=== PATIENT | male | born 1970 | race Caucasian/White ===

== ENCOUNTER 2021-04-26 12:16 | Emergency (ER) | payer OTHER, SELFPAY ==
[2021-04-26] VITALS (26 sets, daily range): BP systolic 129–183; BP diastolic 75–93; PULSE 63–81; RESP 12–22; TEMP 36.6; O2SAT 95–100
--- NOTE | ~2021-04-26 | XR_ITS ---
EXAMINATION: XR chest 2V DATE: 04/26/2021 12:38 INDICATION: Chest pressure TECHNIQUE: PA and lateral views of the chest are obtained. COMPARISON: None available FINDINGS: The lungs are free of acute opacities. There is no pleural effusion or pneumothorax. The ca rdiomediastinal silhouette is normal. There is mild thoracic spondylosis. IMPRESSION: 1. No acute cardiopulmonary abnormality. Reviewed, dictated and finalized at location B.
--- NOTE | 2021-04-26 12:19 | ECG_ITS ---
Measurements Intervals [place] Rate: 70 P: 1 CA: 216 QRS: 19 QRSD: 126 T: -1 QT: 396 QTc: 428 Interpretive Statements SINUS RHYTHM WITH FIRST DEGREE AV BLOCK INTRAVENTRICULAR CONDUCTION DELAY CANNOT RULE OUT SEPTAL INFARCT, AGE INDETERMINATE BORDERLINE ST-T WAVE ABNORMALITY- INFERIOR LEADS ABNORMAL ECG Electronically Signed On 04-26-2021 13:08:44 CDT by Carlitos Nichole D.O.
[2021-04-26 12:43] LABS: Basophils Absolute Auto 0.1 K/mm3 (0.0-0.1); Eosinophils Absolute Auto 0.2 K/mm3 (0-0.3); Eosinophils Percent Auto 2.1 % (0-4.4); Hematocrit 48.4 % (42.0-52.0); Hemoglobin 16.1 g/dL (14.0-18.0); Immature Granulocyte Absolute 0.02 K/mm3 (0.00-0.031); Immature Granulocyte Percent A 0.3 % (0-0.5); Lymphocytes Absolute Auto 1.86 K/mm3 (0.9-3.2); Lymphocytes Percent Auto 25.6 % (18.3-44.2); Mean Corpuscular HGB Conc 33.3 g/dl (32-36); Mean Corpuscular Hemoglobin 28.9 pg (26-34); Mean Corpuscular Volume 86.9 fl (80-100); Monocytes Absolute Auto 0.7 K/mm3 (0.1-0.6); Monocytes Percent Auto 9.1 % (2.6-8.5); Neutrophils Absolute Auto 4.5 K/mm3 (1.3-6.7); Neutrophils Percent Auto 61.9 % (45.5-73.1); Platelet Count Result 211 k/mm3 (150-375); Red Blood Count 5.57 M/mm3 (4.6-6.20); White Blood Count 7.3 K/mm3 (4.5-10.0)
[2021-04-26 12:54] LABS: Alanine Aminotransferase 22 U/L (4-50); Albumin Level 4.6 g/dL (3.5-5.1); Alkaline Phosphatase 108 U/L (38-126); Anion Gap 9 mmol/L (8-16); Aspartate Amino Transferase 25 U/L (17-59); Bilirubin,Total 0.5 mg/dL (0.2-1.3); Blood Urea Nitrogen 14 mg/dL (9-20); Calcium 9.2 mg/dL (8.4-10.2); Carbon Dioxide 25 mmol/L (22-30); Chloride 110 mmol/L (98-107); Estimated CRCL calculation 136 ml/min; Estimated Glomerular Filt Rate > 60; Glucose 100 mg/dL (75-110); Sodium 144 mmol/L (137-145)
[2021-04-26 13:05] LABS: Troponin I < 0.012 ng/mL (0.000-0.034)
--- NOTE | 2021-04-26 13:16 | ED.CHESTPAIN ---
HPI - Chest Pain General Chief Complaint: Weakness Stated Complaint: high blood pressure Time Seen by Provider: 04/26/21 13:01 Source: patient Mode of arrival: ambulatory Limitations: no limitations History of Present Illness HPI narrative: Patient is a 51-year-old male complaining of chest discomfort, 3 out of 10, nonradiating accompanied by elevated blood pressure while at work prior to arrival. Patient states that his blood pressure was in the 170s over 100s, at that time he was having some chest discomfort and now resolved. Patient denies any history of hypertension. Patient denies any shortness of breath, abdominal pain, nausea, vomiting, diaphoresis, fever or chills. Related Data Home Medications Medication Instructions Recorded Confirmed cetirizine 10 mg tablet 10 mg PO DAILY 03/15/20 03/15/20 Allergies Allergy/AdvReac Type Severity Reaction Status Date / Time Sulfa (Sulfonamide Allergy Unknown Verified 03/15/20 16:25 Antibiotics) Review of Systems Review of Systems: All systems reviewed & are unremarkable except as noted in HPI and below Constitutional: Constitutional: Denies body ache(s), Denies chills, Denies excessive sweating, Denies fatigue, Denies fever(s), Denies headache(s), Denies lethargy, Denies malaise, Denies weakness and Denies weight loss Eyes: Eyes: Denies blurry vision, Denies change in vision and Denies loss of vision ENT: Denies dizziness, Denies ear discharge, Denies headache(s), Denies lip swelling, Denies epistaxis, Denies nasal congestion, Denies neck pain, Denies throat swelling and Denies tongue swelling Cardiovascular: Cardiovascular: Denies diaphoresis, Denies rapid heart rate, Denies edema, Denies irregular heart rhythm, Denies lightheadedness, Denies palpitations, Denies dyspnea and Denies dyspnea on exertion Respiratory: Respiratory: Denies chest congestion, Denies cough, Denies hemoptysis, Denies dyspnea and Denies dyspnea on exertion Gastrointestinal: Gastrointestinal: Denies abdominal pain, Denies melena, Denies hematochezia, Denies diarrhea, Denies nausea, Denies vomiting and Denies hematemesis Musculoskeletal: Musculoskeletal: Denies abnormal gait, Denies deformity, Denies joint swelling, Denies limited range of motion, Denies neck pain and Denies numbness Neurologic: Denies Abnormal speech present, Denies abnormal gait, Denies confusion, Denies dizziness, Denies headache(s), Denies focal weakness, Denies loss of vision, Denies numbness, Denies Other visual disturbances, Denies Sensory deficit (Neuro) and Denies weakness Psychiatric: Psychiatric: Denies confusion, Denies depression, Denies auditory hallucinations, Denies homicidal ideation and Denies suicidal ideation Endocrine: Endocrine: Denies cold intolerance, Denies excessive sweating, Denies fatigue, Denies heat intolerance and Denies palpitations Hematologic/Lymphatic: Hematologic/Lymphatic: Denies easy bleeding and Denies easy bruising Allergic/Immunologic: Allergic/Immunologic: Denies lip swelling, Denies throat swelling and Denies tongue swelling PMFSH Past Medical History Medical History (Updated 04/26/21 @ 18:03 by Toni Naylor MD) Seasonal allergies Family History Family History Mother Hypertension Father Diabetes mellitus Hypertension Cerebrovascular accident Atrial fibrillation Social History Social History Smoking status: Never smoker Alcohol intake: current Drinks per week: 1 Substance use: never Gender identity (if verbalized by the patient): Male Comments Past medical history: Hypertension Social history: Non-smoker no EtOH or drug use Family history: Positive for coronary artery disease, [place], hypertension, diabetes, CVA Exam Const: General: cooperative, healthy appearing, comfortable, no acute distress, well developed, alert and awake; No confusion Orie
[2021-04-26] MEDS: ASPIRIN 81 MG CHEWABLE TABLET 324 MG PO (13:49)
[2021-04-26 14:15] LABS: Add Urine Microscopic? YES; Appearance Urine Clear (Clear); Bilirubin Urine Negative (Negative); Blood Urine 1+ (Negative); Color Urine Yellow (Yellow); Glucose Urine UA Negative (Negative); Ketones Urine Negative (Negative); Leukocyte Esterase Ur Negative LEU/UL (Negative); Mucus Urine Rare /lpf; Nitrate Urine Negative (Negative); Protein Urine 1+ mg/dL (Negative); RBC Urine 0-2 /hpf (0-2); Specific Grav Ur 1.027 (1.001-1.035); Squamous Epithelial Cell Urine Rare /hpf (Few); Urobilinogen Urine Negative mg/dL (<2.0); WBC Urine 0-3 /hpf
[2021-04-26 17:30] LABS: Troponin I < 0.012 ng/mL (0.000-0.034)
== END 2021-04-26 18:15 | disposition home or self-care (01) ==
PROVIDERS: Emergency Medicine; Emergency Provider Emergency Medicine; PCP Internal Medicine
DX: R07.89 Other chest pain (principal); I44.0 Atrioventricular block, first degree; I45.9 Conduction disorder, unspecified; R94.31 Abnormal electrocardiogram [ECG] [EKG]
CPT/HCPCS: 36415; 71046; 80053; 81001; 84484; 85025; 93005; 99284; A9270

== ENCOUNTER 2022-05-04 13:10 | Emergency (ER) | payer OTHER, SELFPAY ==
[2022-05-04 13:21] VITALS: BP 127/80; PULSE 97; RESP 24; TEMP 37.1; O2SAT 98
--- NOTE | 2022-05-04 14:31 | ED.GENADULT ---
HPI - General Adult General Chief complaint: Extremity Problem,Nontraumatic Stated complaint: Pain in Righ Calf,Shortness of Breath Time Seen by Provider: 05/04/22 14:12 Source: patient Mode of arrival: ambulatory Limitations: no limitations History of Present Illness HPI narrative: Patient presents today complaining of right calf pain and shortness of breath with exertion and fatigue. Patient reported a flight home from [facility] 2 days ago. He states that prior to this he had a 2-hour car ride to the airport in which he developed some right calf pain. After the long flight back to [place], as he was walking to immigration in the airport, patient noted that his heart rate was very fast and he had developed some shortness of breath with exertion and fatigue. The symptoms have persisted since he arrived in the [place] yesterday at 9 AM. He rates his Pain 3-10/10, which increases with movement or touching the area. Denies any history of DVT or PE in the past. Denies any current chest pain. Denies numbness or tingling in the affected leg. Related Data Home Medications Medication Instructions Recorded Confirmed cetirizine 10 mg tablet (Zyrtec) 10 mg PO DAILY 03/15/20 05/04/22 Allergies Allergy/AdvReac Type Severity Reaction Status Date / Time Sulfa (Sulfonamide Allergy Unknown Verified 05/04/22 13:27 Antibiotics) Review of Systems Review of Systems: CONSTITUTIONAL: Denies body aches, fever, chills, or sweats. EYES: Denies visual changes, redness, or discharge. ENT: Denies rhinorrhea, congestion, sore throat, or otalgia. CARDIOVASCULAR: Denies chest pain, palpitations, or edema. RESPIRATORY: Denies cough. + Shortness of breath with exertion GASTROINTESTINAL: Denies abdominal pain, nausea, vomiting, or diarrhea. GENITOURINARY: Denies dysuria or hematuria. SKIN: Denies rash, itching, or wounds. MUSCULOSKELETAL: Denies back pain. + Right calf pain NEUROLOGIC: Denies headache, numbness, tingling, or weakness. PSYCH: Denies depression or anxiety. [facility] Past Medical History Medical History (Updated 05/04/22 @ 14:31 by Dahiana Joseph, WOOD TYPE FINISHER, [place]) Seasonal allergies Family History Family History Mother Hypertension Father Diabetes mellitus Hypertension Cerebrovascular accident Atrial fibrillation Social History Social History Smoking status: Never smoker Alcohol intake: current Drinks per week: 1 Alcohol use details: beer or wine Substance use: never Gender identity (if verbalized by the patient): Male Exam Narrative: GENERAL: Well-appearing, well-nourished, and in no acute distress. HEAD: Normocephalic, atraumatic. EYES: EOMI. No redness or drainage. Conjunctivae normal. ENT: Mucous membranes pink and moist. NECK: Normal AROM. CHEST: No respiratory distress. Clear to auscultation. HEART: Regular rate and rhythm. No murmur appreciated. Normal peripheral pulses. EXTREMITIES: 2-3+ pitting edema in the bilateral lower extremities that extends to the knees. Right lower leg: No erythema. Distal sensation intact. Capillary refill normal. Color normal. Patient has significant tenderness to the calf area that extends laterally. Full AROM with increase pain in the calf. SKIN: Warm, dry, no rash. Capillary refill normal. Normal skin turgor. NEURO: No focal deficits. Alert and oriented x3. Gait steady. PSYCH: Normal affect. No signs of depression or anxiety. Course Course Level of Care: Express Care Visit Vital Signs Vital signs: Vital Signs Temperature 98.8 F 05/04/22 13:21 Pulse Rate 97 05/04/22 13:21 Respiratory Rate 24 H 05/04/22 13:21 Blood Pressure 127/80 05/04/22 13:21 Pulse Oximetry 98 05/04/22 13:21 Oxygen Delivery Room Air 05/04/22 13:21 Temperature 98.8 F 05/04/22 13:21 Pulse Rate 97 05/04/22 13:21 Respiratory Rate 24 H 05/04/22 13:21
== END 2022-05-04 14:30 | disposition short-term general hospital (02) ==
PROVIDERS: Emergency Provider Nurse Practitioner; PCP Family Medicine
DX: M79.661 Pain in right lower leg (principal); R06.09 Other forms of dyspnea
CPT/HCPCS: 99212; G0463

== ENCOUNTER 2022-05-04 14:43 | Observation (INO) | payer OTHER, SELFPAY ==
[2022-05-04] VITALS (24 sets, daily range): BP systolic 131–163; BP diastolic 76–133; PULSE 78–96; RESP 12–22; TEMP 36.1–36.8; O2SAT 93–98; BMI 47.9
--- NOTE | ~2022-05-04 | CT_ITS ---
EXAMINATION: CTA chest PE protocol DATE: 05/04/2022 19:51 CDT INDICATION: Elevated d-dimer. Shortness of breath TECHNIQUE: Computed tomographic angiography (CTA) of the chest was performed with 100 mL Omnipaque-35 0 intravenous contrast. The dose-length product was 1160.24 mGy-cm. Maximum intensity projection 3D-r econstructions of the aorta and other arteries were constructed by the technologist on a separate wor kstation. COMPARISON: Chest dated 05/04/2022. FINDINGS: Study is technically adequate. There is pulmonary embolism involving segmental and subsegme ntal pulmonary arteries of the upper and lower lobe pulmonary arteries, moderate thrombus burden. Bor derline heart size. No significant pleural or pericardial effusion. The upper abdomen is unremarkable . No thoracic lymphadenopathy. No endobronchial lesions. No focal airspace consolidation. IMPRESSION: 1. Bilateral pulmonary embolism, moderate thrombus burden. Dr. Erick Stokes discussed with Dr. Alberto Armstrong MD at 05/04/2022 19:53 CDT. Reviewed, dictated and finalized at location A.
--- NOTE | ~2022-05-04 | XR_ITS ---
EXAMINATION: XR chest 1V portable 05/04/2022 17:36 INDICATION: Shortness of breath PROCEDURE: AP portable chest COMPARISON: 04/26/2021 FINDINGS: The lungs are clear. Mild cardiomegaly. There are no pleural effusions. There is no pneumo thorax suspected. IMPRESSION: 1: NO ACUTE CARDIOPULMONARY DISEASE. Reviewed, dictated and finalized at location A.
--- NOTE | ~2022-05-04 | US_ITS ---
EXAMINATION:US venous doppler LE RT INDICATION:Right calf pain. TECHNIQUE: Multiple grayscale, color flow and Doppler images of the right lower extremity deep venous systems were obtained and reviewed. COMPARISON:No prior studies for comparison. FINDINGS: The common femoral, superficial femoral and popliteal veins demonstrate normal respiratory variation, augmentation and compressibility. Color flow is also seen within the posterior tibial, pe roneal, greater saphenous and profunda veins. IMPRESSION: 1: No lower extremity deep venous thrombosis. Reviewed, dictated and finalized at location A.
--- NOTE | 2022-05-04 15:27 | PC.NURSE ---
Pt to [place] via w/c
--- NOTE | 2022-05-04 15:39 | ED.LOWEXIN ---
HPI - Extremity Injury (Lower) General Chief Complaint: Extremity Injury, Lower Stated Complaint: sob, pain in calf Time Seen by Provider: 05/04/22 15:35 History of Present Illness HPI Narrative: Patient is 52 years old white male came to the emergency room complaining of shortness of breath on exertion, pain at the back of the right lower leg, and chest pain started yesterday at 9 AM while coming out of the airplane and standing in the immigration line. The above symptoms lasted about 15 minutes. Patient noticed shortness of breath today on any light activity which is new, he reports that he never had similar symptoms in the past. Patient reports a lot of stress lately. History of hypertension, strong family history of coronary artery disease, patient does not smoke or drink or uses drugs. He denies any fever, chills, nausea, vomiting, back pain, abdominal pain. Currently patient denies any chest pain or shortness of breath as long as laying down in bed. Related Data Allergies Allergy/AdvReac Type Severity Reaction Status Date / Time Sulfa (Sulfonamide Allergy Unknown Verified 05/04/22 14:48 Antibiotics) Review of Systems Review of Systems: CONSTITUTIONAL: Denies fever, chills, or sweats. EYES: Denies visual changes, redness, or discharge. ENT: Denies rhinorrhea, congestion, sore throat, or otalgia. CARDIOVASCULAR: Denies chest pain, palpitations, or edema. RESPIRATORY: Denies cough or dyspnea. GASTROINTESTINAL: Denies abdominal pain, nausea, vomiting, or diarrhea. GENITOURINARY: Denies dysuria or hematuria. SKIN: Denies rash or itching. MUSCULOSKELETAL: Denies back pain, joint pain, or myalgia. NEUROLOGIC: Denies headache, numbness, or weakness. PSYCHIATRIC: Denies anxiety or depression. All systems reviewed & are unremarkable except as noted in HPI and below PMFSH Past Medical History Medical History (Updated 05/04/22 @ 20:38 by Alberto Armstrong MD) Seasonal allergies Family History Family History Mother Hypertension Father Diabetes mellitus Hypertension Cerebrovascular accident Atrial fibrillation Social History Social History Smoking status: Never smoker Alcohol intake: current Drinks per week: 1 Alcohol use details: beer or wine Substance use: never Gender identity (if verbalized by the patient): Male Exam Narrative: General appearance: Well-developed, well-nourished Skin: Normal color Head: Normocephalic, nontraumatic Eyes: Clear conjunctiva ENT: Oropharynx normal, ears normal, nose normal Neck: Supple, nontender Chest and respiratory: Airway patent, no respiratory distress, no accessory muscle use Heart: Regular rate/rhythm Abdomen: Soft, nontender, no organomegaly, quiet bowel sounds Vascular: Normal peripheral pulses, normal capillary refill. Musculoskeletal: Diffuse tenderness right calf muscle, no bruises, no swelling, no rash Neurologic: Alert and oriented ?3, [employer] COMPLIANCE COORDINATOR is normal as tested, no gross motor deficit Course Consultations Consultation #1: Accepted patient admission to chest pain center Vital Signs Vital signs: Vital Signs Temperature 36.6 C 05/04/22 14:45 Pulse Rate 96 05/04/22 14:45 Respiratory Rate 16 05/04/22 14:45 Blood Pressure 163/93 H 05/04/22 14:45 Pulse Oximetry 96 05/04/22 14:45 Oxygen Delivery Room Air 05/04/22 14:45 Temperature 36.6 C 05/04/22 14:45 Pulse Rate 86 05/04/22 19:01 Respiratory Rate 12 05/04/22 19:01 Blood Pressure 138/83 05/04/22 19:01 Pulse Oximetry 94 05/04/22 19:01 Oxygen Delivery Room Air 05/04/22
--- NOTE | 2022-05-04 16:59 | ECG_ITS ---
Measurements Intervals [place] Rate: 83 P: 3 AL: 191 QRS: 44 QRSD: 118 T: 14 QT: 392 QTc: 462 Interpretive Statements SINUS RHYTHM INTRAVENTRICULAR CONDUCTION DELAY BORDERLINE ECG Electronically Signed On 05-04-2022 21:24:02 CDT by Carlitos Nichole D.O.
[2022-05-04 17:22] LABS: Basophils Absolute Auto 0.1 K/mm3 (0.0-0.1); Basophils Percent Auto 0.8 % (0.2-1.2); Eosinophils Absolute Auto 0.2 K/mm3 (0-0.3); Eosinophils Percent Auto 2.7 % (0-4.4); Hematocrit 44.6 % (42.0-52.0); Immature Granulocyte Absolute 0.03 K/mm3 (0.00-0.031); Immature Granulocyte Percent A 0.4 % (0-0.5); Lymphocytes Absolute Auto 1.81 K/mm3 (0.9-3.2); Lymphocytes Percent Auto 21.4 % (18.3-44.2); Mean Corpuscular HGB Conc 33.6 g/dl (32-36); Mean Corpuscular Hemoglobin 29.3 pg (26-34); Mean Corpuscular Volume 87.1 fl (80-100); Monocytes Percent Auto 11.3 % (2.6-8.5); Neutrophils Absolute Auto 5.4 K/mm3 (1.3-6.7); Neutrophils Percent Auto 63.4 % (45.5-73.1); Platelet Count Result 198 k/mm3 (150-375); Red Blood Count 5.12 M/mm3 (4.6-6.20); Red Cell Distribution Width 13.3 % (11.5-14.5); White Blood Count 8.4 K/mm3 (4.5-10.0)
[2022-05-04] MEDS: ASPIRIN 81 MG CHEWABLE TABLET 324 MG PO (17:23)
[2022-05-04 17:24] LABS: Alveolar/Arterial O2 Gradient 27.3 mmHg; Base Excess ABG 1.4 mEq/l (+/-2.0); Fractional Inspired Oxygen 21 %; HCO3 ABG 24.7 mEq/l (22.0-26.0); Oxygen Content ABG 20.8 %vol (16.0-22.0); Oxygen Saturation ABG 96.4 % (95.0-100.0); Oxyhemoglobin 94.8 % THb (90.0-100.0); PCO2 ABG 35.5 mmHg (35.0-45.0); PO2 ABG 79.9 mmHg (80.0-100.0); Total Hemoglobin 15.6 g/dL (12.0-18.0); pH ABG 7.461 (7.350-7.450)
[2022-05-04 17:26] LABS: Device ROOM AIR; Modified Allen's Test Pass; Site Drawn RIGHT RADIAL
[2022-05-04 17:32] LABS: INR 1.2; Prothrombin Time 14.8 Seconds (11.1-14.7)
[2022-05-04 17:33] LABS: Alanine Aminotransferase 23 U/L (6-50); Albumin Level 4.2 g/dL (3.5-5.1); Alkaline Phosphatase 94 U/L (38-126); Anion Gap 6 mmol/L (8-16); Aspartate Amino Transferase 21 U/L (17-59); Bilirubin,Total 0.3 mg/dL (0.2-1.3); Blood Urea Nitrogen 9 mg/dL (9-20); Calcium 8.2 mg/dL (8.4-10.2); Carbon Dioxide 28 mmol/L (22-30); Chloride 108 mmol/L (98-107); Estimated CRCL calculation 134 ml/min; Estimated Glomerular Filt Rate > 60; Glucose 107 mg/dL (65-110); Partial Thromboplastin Time 30.4 SECONDS (22.3-36.8); Potassium 3.6 mmol/L (3.4-5.0); Sodium 142 mmol/L (137-145)
[2022-05-04 17:45] LABS: NT Pro B Type Natriuretic Pept 143 pg/mL (5-100); Troponin I 0.021 ng/mL (0.000-0.034)
[2022-05-04 17:54] LABS: D Dimer 3.21 ug/mL (<0.48)
[2022-05-04 18:33] LABS: Appearance Urine Clear (Clear); Bilirubin Urine Negative (Negative); Color Urine Yellow (Yellow); Glucose Urine UA Negative (Negative); Ketones Urine Negative (Negative); Leukocyte Esterase Ur Negative LEU/UL (Negative); Nitrate Urine Negative (Negative); Protein Urine Negative (Negative); Specific Grav Ur 1.025 (1.001-1.035); Urobilinogen Urine 0.2 mg/dL (<2.0); pH Urine 6.5 (5.0-9.0)
[2022-05-04 18:40] LABS: Mucus Urine Few /lpf; Squamous Epithelial Cell Urine Rare /hpf (Few); WBC Urine 0-3 /hpf
[2022-05-04 18:41] LABS: Add Urine Microscopic? YES; Blood Urine Trace-Intact (Negative)
[2022-05-04 18:46] LABS: Amphetamine Screen Urine Negative (Negative); Barbiturate Screen Urine Negative (Negative); Benzodiazepines Screen Urine Negative (Negative); Cannabinoid Screen Urine Negative (Negative); Cocaine Screen Urine Negative (Negative); Methadone Screen Urine Negative (Negative); Opiate Screen Urine Negative (Negative); Phencyclidine Screen Urine Negative (Negative)
[2022-05-04] MEDS: ENOXAPARIN 60 MG/0.6 ML SYRINGE 50 MG SUB-Q (20:14)
[2022-05-04] MEDS: ENOXAPARIN 100 MG/ML SYRINGE SUB-Q (20:15)
[2022-05-04 20:54] LABS: Troponin I 0.017 ng/mL (0.000-0.034)
--- NOTE | 2022-05-04 21:13 | ADMGEN ---
This patient, Laird Raven Benson, was admitted to IMU Room 212-01 at 2113. Patient/family oriented to hospital policies and general routines including ID bracelet, bed and alarms, visiting hours, pain management, procedures, bathroom and other care routines, personal items, smoking policy, room service/diet, and visiting hours. Information on how to activate the Rapid Response Team has been discussed. Patient/Family are encouraged to report perceived risks to care and to ask questions if they do not understand what they are told or what they should do.
--- NOTE | 2022-05-04 21:42 | PM.IMHP ---
H&P: HPI History of Present Illness Date/Time: 05/04/22 21:42 Chief Complaint: 52-year-old male with past medical history significant for morbid obesity and hypertension S presenting with dyspnea on exertion. Patient states he was recently on an airplane and then when he came back he noticed pain in his right calf. Later he had shortness of breath with any activity which is new for him. He does admit to a lot work stressors lately and is involved in a lawsuit at this time that is stressing him out significantly. He is a nonsmoker nondrinker and does not engage in any illicit substances. He denies any nausea, vomiting or diarrhea. No fevers or chills. Denies chest pain. He does not have shortness of breath at rest. Of note, patient states he is only on Norvasc 10 mg which she has been on for the last 6-9 months for hypertension. During that time, he has noticed some chronic lower extremity swelling. He was told this could be a side effect of the medication, but that was okay to continue taking the medication. In the ER, lower extremity Dopplers were ordered and were negative for DVT. However, due to the D-dimers elevation and the patient's symptoms, CTA was ordered and showed bilateral PE. No heart strain was noted. Cardiology was consulted from the ER, an echocardiogram was ordered and the patient was given a therapeutic dose of Lovenox. Review of Systems Review of Systems: 12 point review of systems was assessed and was negative except as noted in the HPI [facility] Past Medical History Medical History (Updated 05/04/22 @ 21:51 by Jennifer James DO) Seasonal allergies Family History Family History Mother Hypertension Father Diabetes mellitus Hypertension Cerebrovascular accident Atrial fibrillation Social History Social History Smoking status: Never smoker Alcohol intake: never Drinks per week: 1 Alcohol use details: beer or wine Substance use: never Substance use type: does not use Gender identity (if verbalized by the patient): Male Spiritual care concerns: No Meds Home Medications and Allergies Home Medications Medication Instructions Recorded Confirmed Type amlodipine 10 mg tablet 10 mg PO DAILY #30 tabs 12/06/21 05/04/22 Rx cyclobenzaprine 5 mg tablet 1 tablet PO TID PRN Headache 05/04/22 05/04/22 History Allergies Allergy/AdvReac Type Severity Reaction Status Date / Time Sulfa (Sulfonamide Allergy Unknown Verified 05/04/22 14:48 Antibiotics) Vital Signs Vital Signs - 24 hr 05/04/22 14:45 05/04/22 15:20 05/04/22 15:21 Temperature 97.8 F Pulse Rate 96 Respiratory Rate 16 Blood Pressure 163/93 H 154/108 H Pulse Oximetry 96 96 95 Oxygen Delivery Room Air 05/04/22 15:54 05/04/22 15:55 05/04/22 15:56 Temperature Pulse Rate Respiratory Rate Blood Pressure 145/133 H 160/81 H Pulse Oximetry 96 Oxygen Delivery 05/04/22 17:21 05/04/22 17:07 05/04/22 18:01 Temperature Pulse Rate 91 Respiratory Rate 18 22 H 21 H Blood Pressure Pulse Oximetry 93 Oxygen Delivery 05/04/22 18:24 05/04/22 18:25 05/04/22 18:36 Temperature Pulse Rate 90 86 87 Respiratory Rate 20 18 19 Blood Pressure 140/92 H Pulse Oximetry 94 96 96 Oxygen Delivery 05/04/22 18:45 05/04/22 18:46 05/04/22 19:00 Temperature Pulse Rate 91 86 88 Respiratory Rate 19 20 17 Blood Pressure 131/92 H Pulse Oximetry 94 93 97 Oxygen Delivery 05/04/22 19:01 05/04/22 19:02 05/04/22 19:15 Temperature Pulse Rate 86 86 90 Respiratory Rate 12 19 18 Blood Pressure 138/83 Pulse Oximetry 94 93 96 Oxygen Delivery 05/04/22 19:32 05/04/22 21:04 05/04/22 21:34 Temperature Pulse Rate 86 86 86 Respiratory Rate 20 16 16 Blood Pressure 148/90 H Pulse Oximetry 95 95 95 Oxygen Delivery Room Air 05/04/22 21
[2022-05-05] VITALS (11 sets, daily range): BP systolic 139–149; BP diastolic 81–102; PULSE 70–85; RESP 12–20; TEMP 36.4–36.7; O2SAT 95–100
--- NOTE | 2022-05-05 | ECHO_ITS ---
Patient Info Name: Eitan Benson Age: 52 years : 1970 Gender: Male Ht: 72 in Wt: 353 lbs BSA: 2.93 m2 HR: 82 bpm BP: 139 / 81 mmHg Heart Rhythm: Sinus Rhythm Exam Date: 05/05/2022 8:57 AM Exam Location: [facility] Patient Status: Inpatient Admit Date: 05/04/2022 Staff Ordering Physician: Jennifer James DO Senior Underwriting Assistant: Javan Mohr RDCS, RT Attending Provider: Jennifer James DO Referring Physician: Erika CURIEL; Exam Type: CA echo doppler color flow Study Info Indications I26.09 - Other pulmonary embolism with acute cor pulmonale Complete two-dimensional, color flow and Doppler transthoracic echocardiogram is performed. Strain analysis performed. Summary 1. Complete two-dimensional, color flow and Doppler transthoracic echocardiogram is performed. 2. Left ventricular chamber dimension is normal. 3. Left ventricular systolic function is normal, estimated at 65-70%. 4. There is moderately increased left ventricular wall thickness. 5. The left ventricular diastolic function is grade I diastolic dysfunction. 6. Global longitudinal strain is mildly elevated at -15 %. 7. Right ventricular chamber dimension is normal. 8. Right ventricular systolic function is normal with a TAPSE of 2.6.. 9. Right atrial chamber dimension is mildly enlarged. 10. The aortic root size at the sinus of Valsalva is mildly dilated. Clinical correlation advised. Left Ventricle Left ventricular chamber dimension is normal. Left ventricular systolic function is normal, estimated at 65-70%. There is moderately increased left ventricular wall thickness. The left ventricular diastolic function is grade I diastolic dysfunction. Global longitudinal strain is mildly elevated at -15 %. Right Ventricle Right ventricular chamber dimension is normal. Right ventricular systolic function is normal with a TAPSE of 2.6.. Left Atria Left atrial chamber dimension is mildly enlarged. Right Atria Right atrial chamber dimension is mildly enlarged. Aortic Valve The aortic valve is not well visualized. There is no aortic valve stenosis. There is no aortic valve regurgitation. Pulmonic Valve The pulmonic valve is not well visualized. There is trace pulmonic regurgitation. Mitral Valve The mitral valve has normal leaflets. There is trace mitral valve regurgitation. Tricuspid Valve The tricuspid valve leaflets are normal. There is trace tricuspid valve regurgitation. Unable to estimate PA systolic pressure due to poor spectral resolution of tricuspid regurgitant jet velocity. Pericardium/Pleural The pericardium appears normal. There is trivial pericardial effusion. Inferior Vena Cava Dilated inferior vena cava with >50% collapse upon inspiration consistent with elevated right atrial pressure, 10 mmHg. Aorta The aortic root size at the sinus of Valsalva is mildly dilated. Clinical correlation advised. Left Ventricular Outflow Tract Name Value Normal LVOT 2D LVOT Diameter 2.4 cm LVOT Doppler LVOT Peak Gradient 3 mmHg LVOT Mean Gradient 2 mmHg
[2022-05-05] MEDS: CHLORTHALIDONE 25 MG TABLET PO ×2 (00:07→08:38)
[2022-05-05 00:54] LABS: Troponin I 0.013 ng/mL (0.000-0.034)
[2022-05-05] MEDS: APIXABAN 5 MG TABLET 10 MG PO (08:38)
[2022-05-05] MEDS: CYCLOBENZAPRINE HCL 5 MG TABLET PO (08:41)
--- NOTE | 2022-05-05 16:17 | PM.DS ---
DS: Admitting Diagnosis Discharge Date 05/05/22 Admitting Diagnosis Shortness of breath DS: Discharge Diagnosis Discharge Diagnosis (1) Pulmonary embolism: Code(s): I26.99 - Other pulmonary embolism without acute cor pulmonale Status: Acute (2) Morbid obesity with BMI of 45.0-49.9, adult: Code(s): E66.01 - Morbid (severe) obesity due to excess calories; Z68.42 - Body mass index [BMI] 45.0-49.9, adult Status: Acute (3) Essential hypertension: Code(s): I10 - Essential (primary) hypertension Status: Acute (4) Situational stress: Code(s): F43.9 - Reaction to severe stress, unspecified Status: Acute DS: Summary Hospital Course Reason for hospitalization: 52yo male with HTN here for shortness of breath and found to have a PE. Please see H&P for details Hospital Course: Patient presented with complaints of shortness of breath. CBC was normal. PT was slightly elevated INR was normal. D-dimer was 3.2. ABG was 7.46/35/80 on room air. Comprehensive metabolic panel was normal. BNP was slightly elevated at 143. Troponin was negative x3. Urinalysis was clear. Urine drug screen was negative. Chest x-ray was clear. Lower extremity venous Doppler was negative for DVT. CTA of the chest showed bilateral pulmonary emboli with moderate thrombus burden. EKG showed normal sinus rhythm with a interventricular conduction delay. This appears very similar to a previous EKG 1 year ago. Patient remained on room air throughout his hospital course. He was started on Lovenox and admitted for further care. Echocardiogram showed EF of 65-70% and grade 1 diastolic dysfunction. Unable to estimate PA systolic pressure. He did have what appears to be an elevated right atrial pressure however. Patient feels well today. No shortness of breath. Minimal dyspnea on exertion. He was switched to Xarelto. He was complaining of leg edema felt related to his amlodipine so he was switched to chlorthalidone here. Blood pressure remained mildly elevated during hospital course. Was felt this could be further addressed by his primary care doctor. Case management was consulted for determining Eliquis availability for the patient. This was arranged. Patient overall did well and was able to be discharged home on 05/05/2022. Status at Discharge Cognitive/behavioral status at discharge: Stable Time Spent with Patient Time attestation: Total time spent providing and/or coordinating discharge services: 38 minutes Time spent: Greater than 30 minutes Exam Narrative: AF 97.9 148/94 79 12 96% ra Gen - NARD Chest - CTA bilaterally, nml RR CV - RRR S1/S2 Abd - Soft, NT/ND, Positive BS Ext - No pedal edema Psych - Nml mood and affect Skin - Warm and dry DS: Data Data Completed and Pending Labs on day of discharge: Labs from last 24 hours 05/05/22 05/04/22 05/04/22 00:25 20:25 18:23 WBC RBC Hgb Hct MCV MCH MCHC RDW Plt Count MPV Immature Gran % (Auto) Neut % (Auto) Lymph % (Auto) [place] % (Auto) Eos % (Auto) Baso % (Auto) Lymph # (Auto) [place] # (Auto) Eos # (Auto) Baso # (Auto) Abs Immat Gran (auto) Absolute Neuts (auto) Absolute Nucleated RBC Nucleated RBC % PT INR APTT D-Dimer Puncture Site ABG pH ABG pCO2 ABG pO2 ABG PO2/FiO2 Ratio ABG HCO3 ABG O2 Saturation ABG O2 Content ABG Base Excess A-a Gradient Oxyhemoglobin Total Hemoglobin O2 Delivery Device O2 Liters/Min FiO2 Sodium Potassium Chloride Carbon Dioxide Anion Gap BUN Creatinine Estim Creat Clear Calc Estimated GFR Glucose Calcium Total Bilirubin AST ALT Alkaline Phosphatase Troponin I 0.013 D 0.017 NT-Pro-B Natriuret Pep Total Protein Albumin Urine Color Urine Appearance Urine pH Ur Specific
== END 2022-05-05 17:26 | disposition home or self-care (01) ==
LOC: ANHED 20:38 → ANHIMU 22:32
PROVIDERS: Admitting Provider Student in an Organized Health Care Education/Training Program; Emergency Provider Emergency Medicine; PCP Family Medicine; Visit Provider Internal Medicine
DX: I26.99 Other pulmonary embolism without acute cor pulmonale (principal); M79.661 Pain in right lower leg; R06.09 Other forms of dyspnea; I10 Essential (primary) hypertension; Z82.49 Family history of ischemic heart disease and other diseases of the circulatory system; E66.01 Morbid (severe) obesity due to excess calories; Z68.42 Body mass index [BMI] 45.0-49.9, adult; F43.9 Reaction to severe stress, unspecified; Z79.899 Other long term (current) drug therapy
CPT/HCPCS: 36415; 36600; 71045; 71275; 80053; 80307; 81001; 82805; 83880; 84484; 85025; 85380; 85610; 85730; 93005; 93306; 93971; 96372; 99285; A9270; G0378; J1650; Q9967